=== PATIENT | male | born 1940 | race Caucasian/White ===

== ENCOUNTER 2022-02-07 05:58 | Day surgery (SDC) | payer OTHER, BC ==
[2022-02-05 14:04] VITALS: BMI 26.3
[2022-02-07] MEDS ORDERED: ROPIVACAINE HCL 0.5% 30ML VIAL ONE (09:38)
[2022-02-07] MEDS ORDERED: MIDAZOLAM HCL 2 MG/2 ML SINGLE DOSE VIAL ONE ×2 (09:39→09:40)
[2022-02-07] MEDS ORDERED: PROPOFOL 20 ML ONE (09:41)
[2022-02-07] MEDS ORDERED: LIDOCAINE HCL/PF (2%) 40 MG/2 ML VIAL ONE (09:43)
[2022-02-07] MEDS ORDERED: ONDANSETRON 4 MG/2 ML VIAL ONE (10:41)
[2022-02-07] MEDS ORDERED: DEXAMETHASONE SOD PHOSPHATE 4 MG/1 ML VIAL ONE (10:41)
[2022-02-07] MEDS ORDERED: ceFAZolin SODIUM 1 GM VIAL IVPB ONE (10:44)
[2022-02-07] MEDS ORDERED: ceFAZolin SODIUM 1 GM VIAL ONE (10:44)
[2022-02-07] MEDS ORDERED: ePHEDrine SULFATE 50 MG/1 ML AMPULE ONE (11:01)
[2022-02-07] MEDS ORDERED: oxyCODONE HCL 5 MG TABLET PO PRN (12:21)
[2022-02-07] MEDS ORDERED: ONDANSETRON 4 MG/2 ML VIAL IVPUSH PRN (12:21)
[2022-02-07] MEDS ORDERED: LACTATED RINGERS SOLUTION 1,000 ML IV SCH (12:30)
[2022-02-07 14:42] VITALS: RESP 18; TEMP 97.8
[2022-02-07 15:11] VITALS: BP 126/64; PULSE 75
== END 2022-02-07 14:15 | disposition home or self-care (01) ==
LOC: JASU-SURG 05:58
PROVIDERS: ATTEND Orthopaedic Surgery
PROC: 0RNJ4ZZ Release Right Shoulder Joint, Percutaneous Endoscopic Approach (ICD-10-PCS; principal; 2022-02-07 09:30)
PROC: 0LM14ZZ Reattachment of Right Shoulder Tendon, Percutaneous Endoscopic Approach (ICD-10-PCS; 2022-02-07 09:30)
DX: M75.41 Impingement syndrome of right shoulder (principal); M75.101 Unspecified rotator cuff tear or rupture of right shoulder, not specified as traumatic; M19.011 Primary osteoarthritis, right shoulder
CPT/HCPCS: 94760